=== PATIENT | female | born 1950 | race Caucasian/White ===

== ENCOUNTER 2024-02-05 13:52 | Emergency (ER) | payer MEDICARE, MEDICAID ==
[~2024-02-05] VITALS: Ht 154.9 cm; Wt 70.3 kg
[~2024-02-05 13:52] MED LIST: ATIVAN0.5 MG PO; CLARITIN10 MG PO; NKHM; PREDNISOLONE5 MG PO
== END 2024-02-05 16:41 | disposition home or self-care (01) ==
LOC: ED 13:52
DX: M77.31 Calcaneal spur, right foot (principal); Z98.890 Other specified postprocedural states